=== PATIENT | male | born 1995 | race American Indian/Alaskan Native ===

== ENCOUNTER 2022-02-02 19:48 | Emergency (ER) | payer BC ==
[2022-02-02] MEDS ORDERED: Ketorolac 30 MG/ML SDV IM ONE (20:32)
== END 2022-02-02 21:09 | disposition home or self-care (01) ==
LOC: JP.ED 19:48
DX: K04.7 Periapical abscess without sinus (principal); K02.9 Dental caries, unspecified
CPT/HCPCS: 96372; 99282; J1885; 99281